=== PATIENT | male | born 1960 | race African-American/Black ===

== ENCOUNTER 2024-05-31 11:08 | Emergency (ER) | payer OTHER ==
[2024-05-31 11:19] VITALS: BP 148/84; PULSE 90; RESP 18; TEMP 98.1; BMI 26.7
[2024-05-31] MEDS ORDERED: KETOROLAC TROMETHAMINE 15 MG/ML VIAL ONE (12:05)
[2024-05-31] MEDS: KETOROLAC TROMETHAMINE 15 MG/ML VIAL IM ONE (12:10)
[2024-05-31] MEDS: KETOROLAC TROMETHAMINE 10 MG TABLET PO ONE (12:11)
== END 2024-05-31 13:01 | disposition home or self-care (01) ==
LOC: JER 11:08
PROC: 3E0233Z Introduction of Anti-inflammatory into Muscle, Percutaneous Approach (ICD-10-PCS; principal; 2024-05-31)
DX: S50.01XA Contusion of right elbow, initial encounter (principal); W22.8XXA Striking against or struck by other objects, initial encounter
CPT/HCPCS: 73070-TC-RT-FY; 99284-25